=== PATIENT | male | born 2000 | race Caucasian/White ===

== ENCOUNTER 2023-01-30 15:10 | Emergency (ER) | payer BC, SELFPAY ==
[2023-01-30 15:20] VITALS: BP 143/76; PULSE 101; RESP 16; TEMP 36.9; O2SAT 99
--- NOTE | 2023-01-30 16:24 | ED.SKABFB ---
HPI - Skin/Abscess/Foreign Bdy General Chief complaint: Skin/Abscess/Foreign Body Stated complaint: lump under right arm Time Seen by Provider: 01/30/23 16:12 Source: patient and RN notes reviewed Mode of arrival: ambulatory Limitations: no limitations History of Present Illness HPI narrative: Patient presents today complaining of a bump that he found on his right breast area 4 days ago. Denies pain, redness, drainage. Denies any recent illness. States he has lost some recent weight over the past 2-3 months, but reports he has been working strenuously with a family member and doing some workouts at home. Related Data Home Medications Medication Instructions Recorded Confirmed No Home Medications 01/30/23 01/30/23 Allergies Allergy/AdvReac Type Severity Reaction Status Date / Time No Known Allergies Allergy Unverified 01/30/23 15:15 Review of Systems Review of Systems: CONSTITUTIONAL: Denies body aches, fever, chills, or sweats. EYES: Denies visual changes, redness, or discharge. ENT: Denies rhinorrhea, congestion, sore throat, or otalgia. CARDIOVASCULAR: Denies chest pain, palpitations, or edema. RESPIRATORY: Denies cough or dyspnea. GASTROINTESTINAL: Denies abdominal pain, nausea, vomiting, or diarrhea. GENITOURINARY: Denies dysuria or hematuria. SKIN: + bump to right breast MUSCULOSKELETAL: Denies back pain, joint pain, or myalgia. NEUROLOGIC: Denies headache, numbness, tingling, or weakness. PSYCH: Denies depression or anxiety. [facility] Family History Family History Mother Family history of type 2 diabetes mellitus Social History Social History Second hand tobacco smoke exposure: Yes Comments At time of signature, I have reviewed and agree with nursing past medical, surgical, social and family history unless otherwise noted. Please see nursing chart for further information. There is no relevant family history pertinent to the presenting complaint Exam Narrative: GENERAL: Well-appearing, well-nourished, and in no acute distress. HEAD: Normocephalic, atraumatic. EYES: EOMI. No redness or drainage. Conjunctivae normal. ENT: Mucous membranes pink and moist. NECK: Normal AROM. CHEST: No respiratory distress. Approximately dime-sized nodule noted to the right lateral breast area, palpated under the skin. This is not evident above the skin. It is freely movable. Nontender. Remainder of the breast appears normal. EXTREMITIES: Normal range of motion. No edema. SKIN: Warm, dry, no rash. Capillary refill normal. Normal skin turgor. NEURO: No focal deficits. Alert and oriented x3. Gait steady. PSYCH: Normal affect. No signs of depression or anxiety. Course Course Level of Care: Express Care Visit Vital Signs Vital signs: Vital Signs Temperature 98.4 F 01/30/23 15:20 Pulse Rate 101 H 01/30/23 15:20 Respiratory Rate 16 01/30/23 15:20 Blood Pressure 143/76 H 01/30/23 15:20 Pulse Oximetry 99 01/30/23 15:20 Oxygen Delivery Room Air 01/30/23 15:20 Temperature 98.4 F 01/30/23 15:20 Pulse Rate 101 H 01/30/23 15:20 Respiratory Rate 16 01/30/23 15:20 Blood Pressure 143/76 H 01/30/23 15:20 Pulse Oximetry 99 01/30/23 15:20 Oxygen Delivery Room Air 01/30/23 15:20 Reviewed MDM - Skin/Abscess/Foreign Bdy MDM Narrative Medical decision making narrative: Patient does not have a PCP. He has been given contact information for PCP in the area for follow-up so he can have some testing ordered. Differential Diagnosis Differential diagnosis: Likely abscess of skin or subcutaneous tissue, cellulitis and other (Cyst,malignancy) Critical Care Time Critical Care Time Critical Care Time: No Discharge Plan Discharge Clinical Impression: Lump in chest Patient Disposition: Home, Self-Care Condition: Stable Additional Instruct
== END 2023-01-30 16:30 | disposition home or self-care (01) ==
PROVIDERS: Emergency Provider Nurse Practitioner
DX: R22.2 Localized swelling, mass and lump, trunk (principal)
CPT/HCPCS: 99211; G0463

== ENCOUNTER 2023-02-10 11:20 | Outpatient (CLI) | payer BC, SELFPAY ==
--- NOTE | ~2023-02-10 | US_ITS ---
EXAMINATION: US breast RT limited HISTORY: Palpable lump in the upper outer quadrant of the right breast TECHNIQUE: Limited right breast ultrasound is performed. FINDINGS: There is no evidence of focal abnormal cystic or solid mass in the vicinity of the reported palpable abnormality of concern. IMPRESSION: No specific sonographic correlate is identified for the reported palpable abnormality of concern. Fur ther evaluation at this time should be based on clinical assessment. Continued follow-up physical exa mination is recommended. BI-RADS Category 1: Negative Reviewed, dictated and finalized at location F. TH TECHNICAL WRITER IMPRESSION: No specific sonographic correlate is identified for the reported palpable abnor mality of concern. Further evaluation at this time should be based on clinical assessment. Continued follow-up physical examination is recommended. BI-RADS Category 1: Negative
== END 2023-02-10 11:21 ==
LOC: MICIMG 11:21
PROVIDERS: PCP Emergency Medicine; Visit Provider Emergency Medicine
DX: N63.11 Unspecified lump in the right breast, upper outer quadrant (principal)
CPT/HCPCS: 76642

== ENCOUNTER 2023-02-18 11:41 | Emergency (ER) | payer BC, SELFPAY ==
--- NOTE | ~2023-02-18 | XR_ITS ---
EXAMINATION: XR chest 2V 02/18/2023 12:59 INDICATION: Left-sided chest pain PROCEDURE: 2 view chest COMPARISON: No prior studies for comparison. FINDINGS: The lungs are clear. The cardiomediastinal silhouette is within normal limits. There are no pleural effusions. There is no pneumothorax suspected. IMPRESSION: 1: NO ACUTE CARDIOPULMONARY DISEASE. Reviewed, dictated and finalized at location A. MAKER
[2023-02-18 11:50] VITALS: BP 142/68; PULSE 68; RESP 16; TEMP 37.6; O2SAT 100
--- NOTE | 2023-02-18 12:36 | ED.URI ---
HPI - URI/Sore Throat General Chief Complaint: Upper Respiratory Infection Stated Complaint: sharp chest pain Time Seen by Provider: 02/18/23 12:36 Source: patient Mode of arrival: ambulatory Limitations: no limitations History of Present Illness HPI Narrative: 22-year-old male with no significant medical history presents with complaint of cough, congestion, sore throat, fatigue, fever for the past 3 days. Reports last night while sitting in his room he took a deep breath had a left-sided sharp pain causing sweating, dizziness that lasted few minutes. since last night having intermittent L sided sharp pain when taking deep breath. No CP or SOB at this time. Pt smokes marijuana daily. All systems reviewed and negative except as noted above. Related Data Home Medications Medication Instructions Recorded Confirmed No Home Medications 02/18/23 02/18/23 Allergies Allergy/AdvReac Type Severity Reaction Status Date / Time No Known Allergies Allergy Verified 02/18/23 12:11 Review of Systems Review of Systems: CONSTITUTIONAL: reports fever fatigue,, chills, or sweats. EYES: Denies visual changes, redness, or discharge. ENT: Reports rhinorrhea, congestion, sore throat. Denies otalgia. CARDIOVASCULAR: Denies chest pain, palpitations, or edema. RESPIRATORY: reports cough, left-sided chest pain with deep breath. Denies dyspnea. GASTROINTESTINAL: Denies abdominal pain, nausea, vomiting, or diarrhea. GENITOURINARY: Denies dysuria or hematuria. SKIN: Denies rash or itching. MUSCULOSKELETAL: Denies back pain, joint pain, or myalgia. NEUROLOGIC: Denies headache, numbness, or weakness. PSYCHIATRIC: Denies anxiety or depression. All other systems reviewed are negative, except as documented in HPI. [facility] Surgical History Surgical History (Updated 02/17/23 @ 16:23 by Sandy Rodriguez CMA) Hx of abdominal surgery Myelination of intestines 2005 Family History Family History (Updated 02/17/23 @ 16:25 by Sandy Rodriguez CMA) Mother Family history of type 2 diabetes mellitus Grandparent Cerebrovascular accident Heart disease Malignant neoplasm of prostate Diabetes mellitus Hypertension Social History Social History (Updated 02/17/23 @ 16:25 by Sandy Rodriguez CMA) Second hand tobacco smoke exposure: Yes Substance use: current Substance use type: marijuana Comments At time of signature, agree with nursing past medical, surgical, social and family history. There is no relevant family history pertinent to the presenting complaint. Exam Narrative: GENERAL: This is a well-nourished, well-developed patient, in no apparent distress. HEAD: normocephalic, atraumatic. EYES: PERRL. Sclera clear/white. Vision is grossly intact. EARS: External ears normal, auditory canals clear and without drainage, TMs normal without perforation. Hearing grossly intact. NOSE: External nose normal with no obvious nasal discharge, nares without redness, no rhinorrhea. THROAT: Mucous membranes moist, posterior pharynx clear. NECK: Neck supple, non-tender without lymphadenopathy, masses or thyromegaly. CARDIOVASCULAR: Regular rate and rhythm without murmurs, gallops, or rubs. RESPIRATORY: Clear to auscultation. Breath sounds equal bilaterally. No wheezes, rales, or rhonchi. SKIN: warm, Dry, intact with no suspicious lesions or rash, good texture and turgor. NEURO: awake, alert, and oriented to person, place and time. There were no obvious focal neurologic abnormalities. EXTREMITIES: No joint tenderness, effusion, or edema noted. Course Course Level of Care: Express Care Visit Vital Signs Vital signs: Vital Signs Temperature 37.6 C 02/18/23 11:50 Pulse Rate 68 02/18/23 11:50 Respiratory Rate 16 02/18/23 11:50 Blood Pressure 142/68 H 02/18/23 11:50 Pulse Oximetry 100 02/18/23 11:50 Oxygen Delivery Room Air 02/18/23 11:50 Temperature 37.6 C 02/18/23 11:50 Pulse Rate 68 1
--- NOTE | 2023-02-18 12:49 | ECG_ITS ---
Measurements Intervals [place] Rate: 62 P: 53 TN: 165 QRS: 36 QRSD: 95 T: 46 QT: 387 QTc: 393 Interpretive Statements SINUS RHYTHM BASELINE ARTIFACT NORMAL ECG NO PREVIOUS ECG AVAILABLE FOR COMPARISON Electronically Signed On 02-19-2023 11:47:13 [employer]ODUCTION CONTROL [employer] by Vic Mckeon M.D.
--- NOTE | 2023-02-18 12:51 | PC.NURSE ---
to xray and then xpc tech to do ekg per dairy equipment installer order.
--- NOTE | 2023-02-18 13:21 | PC.NURSE ---
[facility] tech to do ekg.
== END 2023-02-18 14:28 | disposition home or self-care (01) ==
PROVIDERS: Emergency Provider Nurse Practitioner Family; PCP Emergency Medicine
DX: J10.1 Influenza due to other identified influenza virus with other respiratory manifestations (principal); Z20.822 Contact with and (suspected) exposure to COVID-19; F12.90 Cannabis use, unspecified, uncomplicated
CPT/HCPCS: 71046; 87426; 87804; 93005; 99213; C9803; G0463

== ENCOUNTER 2023-03-15 15:08 | Emergency (ER) | payer BC, SELFPAY ==
--- NOTE | ~2023-03-15 | CT_ITS ---
EXAMINATION: CT abdomen pelvis w con DATE: 03/15/2023 17:46 INDICATION: LLQ/inguinal pain TECHNIQUE: Computed tomography (CT) of the abdomen and pelvis was performed with 100 mL Omnipaque-350 intravenous contrast. Automated exposure control and iterative reconstruction technique were employe d. The dose-length product was 1515.66 mGy-cm. COMPARISON: None. FINDINGS: Lower thorax: Mild symmetric bilateral gynecomastia. Liver: Normal. Biliary/Gallbladder: The gallbladder is contracted but otherwise normal in appearance. No bile duct d ilation. Pancreas: No mass or duct dilation. Spleen: Normal. Adrenals:No mass. Kidneys: 6 mm nonobstructing left midpole calcification. Additional punctate bilateral calcifications also noted. No suspicious mass. No hydronephrosis. GI tract: No small or large bowel dilation. Normal appendix. Mesentery/Peritoneum: No ascites, mass, or free air. Retroperitoneum: No mass. Pelvis: Pelvic organs are within normal limits. Soft Tissues: Soft tissues and body wall unremarkable. Bones: No acute osseous finding. Mild lumbar scoliosis. IMPRESSION: No acute abdominopelvic process detected. Reviewed, dictated and finalized at location K. [facility] [address]
[2023-03-15 15:10] VITALS: BP 162/70; PULSE 87; RESP 16; TEMP 36.7; O2SAT 100
[2023-03-15 17:18] LABS: Basophils Percent Auto 0.6 % (0.2-1.2); Eosinophils Absolute Auto 0.3 K/mm3 (0-0.3); Eosinophils Percent Auto 3.7 % (0-4.4); Hematocrit 42.8 % (42.0-52.0); Immature Granulocyte Absolute 0.02 K/mm3 (0.00-0.031); Immature Granulocyte Percent A 0.3 % (0-0.5); Lymphocytes Absolute Auto 1.72 K/mm3 (0.9-3.2); Lymphocytes Percent Auto 25.6 % (18.3-44.2); Mean Corpuscular HGB Conc 32.7 g/dl (32-36); Mean Corpuscular Hemoglobin 29.7 pg (26-34); Mean Corpuscular Volume 90.9 fl (80-100); Mean Platelet Volume 9.9 fl (7.4-10.4); Monocytes Absolute Auto 0.5 K/mm3 (0.1-0.6); Monocytes Percent Auto 6.9 % (2.6-8.5); Neutrophils Absolute Auto 4.2 K/mm3 (1.3-6.7); Neutrophils Percent Auto 62.9 % (45.5-73.1); Platelet Count Result 290 k/mm3 (150-375); Red Blood Count 4.71 M/mm3 (4.6-6.20); Red Cell Distribution Width 12.8 % (11.5-14.5); White Blood Count 6.7 K/mm3 (4.5-10.0)
[2023-03-15 17:32] LABS: Alanine Aminotransferase 39 U/L (6-50); Albumin Level 4.6 g/dL (3.5-5.1); Alkaline Phosphatase 80 U/L (38-126); Anion Gap 8 mmol/L (8-16); Aspartate Amino Transferase 36 U/L (17-59); Bilirubin,Total 0.3 mg/dL (0.2-1.3); Blood Urea Nitrogen 9 mg/dL (9-20); Calcium 9.2 mg/dL (8.4-10.2); Carbon Dioxide 27 mmol/L (22-30); Chloride 105 mmol/L (98-107); Estimated CRCL calculation 174 ml/min; Estimated Glomerular Filt Rate > 60; Glucose 98 mg/dL (65-110); Potassium 3.9 mmol/L (3.4-5.0); Sodium 140 mmol/L (137-145)
--- NOTE | 2023-03-15 17:59 | ED.ABDPAIN ---
HPI - Abdominal Pain General Chief Complaint: Abdominal Pain Stated Complaint: abd pain Time Seen by Provider: 03/15/23 16:54 History of Present Illness HPI narrative: Patient is a 22-year-old male who presents ER with left-sided abdominal pain. Ongoing over last week. Aching and he feels a bulge in his abdomen. It radiates down into his groin. 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 He is having no issues with bowel movements or urination. No fevers or chills or sweats. No alleviating factors other than rest. Related Data Allergies Allergy/AdvReac Type Severity Reaction Status Date / Time No Known Allergies Allergy Verified 03/15/23 16:55 Review of Systems Review of Systems: All systems reviewed & are unremarkable except as noted in HPI and below Constitutional: Constitutional: Reports no additional constitutional complaints Cardiovascular: Cardiovascular: Reports no additional cardiovascular complaints Respiratory: Respiratory: Reports no additional respiratory complaints Gastrointestinal: Gastrointestinal: Reports abdominal pain, Denies constipation, Denies diarrhea, Denies nausea and Denies vomiting Genitourinary: Genitourinary: Reports no additional male genitourinary complaints Musculoskeletal: Musculoskeletal: Reports no additional musculoskeletal complaints [facility] Past Medical History Medical History (Updated 03/15/23 @ 18:02 by Ramón Hodge MD) Healthy adult male Surgical History Surgical History Hx of abdominal surgery Myelination of intestines 2006 Family History Family History Mother Family history of type 2 diabetes mellitus Grandparent Cerebrovascular accident Heart disease Malignant neoplasm of prostate Diabetes mellitus Hypertension Social History Social History Smoking status: Current some day smoker (marijuana, not tobacco) Second hand tobacco smoke exposure: Yes Substance use: current Substance use type: marijuana Exam Narrative: GENERAL: Well-appearing, well-nourished, and in no acute distress. HEAD: Normocephalic, atraumatic. ENT: Mucous membranes moist. CHEST: Clear to auscultation. No respiratory distress. HEART: Regular rate and rhythm. Normal peripheral pulses. ABDOMEN: Soft, mild tenderness palpation left lower quadrant and left inguinal region without obvious hernia, nondistended, normal active bowel sounds. EXTREMITIES: Normal range of motion. No edema. SKIN: Warm, dry, no rash. NEURO: Alert and oriented x3. PSYCH: Normal mood and affect. Course Course Emergency Course: patient resting comfortably. Informed of results. Recommend treatment with anti-inflammatory medication. Vital Signs Vital signs: Vital Signs Temperature 98.0 F 03/15/23 15:10 Pulse Rate 87 03/15/23 15:10 Respiratory Rate 16 03/15/23 15:10 Blood Pressure 162/70 H 03/15/23 15:10 Pulse Oximetry 100 03/15/23 15:10 Oxygen Delivery Room Air 03/15/23 15:10 Temperature 98.0 F 03/15/23 15:10 Pulse Rate 87 03/15/23 15:10 Respiratory Rate 16 03/15/23 15:10 Blood Pressure 162/70 H 03/15/23 15:10 Pulse Oximetry 100 03/15/23 15:10 Oxygen Delivery Room Air 03/15/23 15:10 MDM - Abdominal Pain Lab Data 03/15/23 17:10 03/15/23 17:10 Labs: Lab Results 03/15/23 Range/Units 17:10 WBC 6.7 (4.5-10.0) K/mm3 RBC 4.71 (4.6-6.20) M/mm3 Hgb 14.0 (14.0-18.0) g/dL Hct 42.8 (42.0-52.0) % MCV 90.9 (80-100) fl MCH 29.7 (26-34) pg MCHC 32.7 (32-36) g/dl RDW 12.8 (11.5-14.5) % Plt Count 290 (150-375) k/mm3 MPV 9.9 (7.4-10.4) fl Immature Gran % (Auto) 0.3 (0-0.5) % Neut % (Auto) 62.9 (45.5-73.1) % Lymph % (Auto) 25.6 (18.3-44.2) % [place] % (Auto) 6.9 (2.6-8.5)
== END 2023-03-15 18:07 | disposition home or self-care (01) ==
PROVIDERS: Emergency Provider Emergency Medicine; PCP Emergency Medicine
DX: S39.011A Strain of muscle, fascia and tendon of abdomen, initial encounter (principal); F12.90 Cannabis use, unspecified, uncomplicated; X58.XXXA Exposure to other specified factors, initial encounter
CPT/HCPCS: 36415; 74177; 80053; 85025; 99284; Q9967

== ENCOUNTER 2023-09-16 08:45 | Emergency (ER) | payer BC, SELFPAY ==
[2023-09-16 08:55] VITALS: BP 151/89; PULSE 68; RESP 16; TEMP 37.4; O2SAT 98
--- NOTE | 2023-09-16 08:56 | ED.DENTAL ---
HPI - Dental/Oral General Chief complaint: Dental/Oral Stated complaint: tooth pain,swollen face Time Seen by Provider: 09/16/23 09:00 Source: patient, RN notes reviewed and old records reviewed Mode of arrival: ambulatory Limitations: no limitations History of Present Illness HPI Narrative: Patient presents today with complaints of pain and swelling to the right side of the face that has been present since yesterday. He reports poor dentition, does have a dental appointment scheduled in 2 days. He denies any fever, chills, sweats. He is able to eat and drink without difficulty. He is managing his own secretions. He voices no other complaints or concerns at this time, denies any injury or trauma Relieving factors: NSAIDs Related Data Allergies Allergy/AdvReac Type Severity Reaction Status Date / Time No Known Allergies Allergy Verified 09/16/23 08:48 Review of Systems Review of Systems: All systems reviewed & are unremarkable except as noted in HPI and below Constitutional: Constitutional: Reports no additional constitutional complaints ENT: Reports system reviewed and no additional complaints, except as documented, Reports facial pain (Right-sided facial pain and associated dental pain), Denies neck mass and Denies neck pain Cardiovascular: Cardiovascular: Reports no additional cardiovascular complaints Respiratory: Respiratory: Reports no additional respiratory complaints Gastrointestinal: Gastrointestinal: Reports no additional gastrointestinal complaints Integumentary/Breasts: Comments: Right-sided facial swelling PMFSH Past Medical History Medical History Healthy adult male Surgical History Surgical History Hx of abdominal surgery Myelination of intestines 2005 Family History Family History Mother Family history of type 2 diabetes mellitus Grandparent Cerebrovascular accident Heart disease Malignant neoplasm of prostate Diabetes mellitus Hypertension Social History Social History Smoking status: Current some day smoker (marijuana, not tobacco) Second hand tobacco smoke exposure: Yes Substance use: current Substance use type: marijuana Comments At the time of my signature, I reviewed and agree with the nursing past medical, surgical, social, and family history. There is no relevant family history pertinent to the patient complaint. Exam Const: General: cooperative, no acute distress, alert and awake Orientation/consciousness: oriented to person, oriented to place and oriented to time HENMT: Head: normal to inspection Mouth: No drooling and No trismus Teeth and gingiva: abnormal tooth and associated gingiva and other (Overall poor dentition. There is gingival swelling. No defined abscess) Throat: posterior oropharynx normal and uvula midline Neck: Neck: full ROM and lymphadenopathy (Right submandibular) Resp: Effort & Inspection: normal respiratory effort and able to speak in complete sentences Auscultation: clear to auscultation bilaterally, no crackles, no rales, no rhonchi and no wheezes Cardio: Palpation: normal PMI Rate: regular rate Rhythm: regular rhythm Heart sounds: S1 normal heart sound present and S2 normal heart sound present Neuro: General: oriented to person, oriented to place and oriented to time Cranial nerves: Yes CN's II-XII intact bilaterally Psych: Appearance: grossly normal Thought process: Normal thought process present Insight: Good insight present (Psych) Judgement: Good judgement present (Psych) Course Course Level of Care: Express Care Visit Vital Signs Vital signs: Vital Signs Temperature 99.3 F 09/16/23 08:55 Pulse Rate 68 09/16/23 08:55 Respiratory Rate 16 09/16/23 08:55 Blood Pressure 151/89 H
== END 2023-09-16 09:17 | disposition home or self-care (01) ==
PROVIDERS: Emergency Provider Nurse Practitioner Family; PCP Emergency Medicine
DX: K04.7 Periapical abscess without sinus (principal); R03.0 Elevated blood-pressure reading, without diagnosis of hypertension; F12.90 Cannabis use, unspecified, uncomplicated
CPT/HCPCS: 99213; G0463